=== PATIENT | female | born 1985 | race Caucasian/White ===

== ENCOUNTER 2016-06-21 10:15 | Inpatient (IN) | payer BC, MEDICAID ==
[~2016-06-21] VITALS: Ht 170.2 cm; Wt 70.0 kg
[~2016-06-21 10:15] MED LIST: FERR-22 PO; PREN1TAB53 PO
[2016-06-21 10:34] VITALS: BP 119/72; PULSE 79; RESP 16; TEMP 98.5; O2SAT 98
[2016-06-21] MEDS ORDERED: MAG-AL + SIM LIQUID 30 ML UDC PO PRN (10:45)
[2016-06-21] MEDS ORDERED: LIDOCAINE 1% (10mg/ml) 2ml SDV ID PRN (10:45)
[2016-06-21] MEDS ORDERED: ACETAMINOPHEN 500 MG TABLET PO PRN (10:45)
[2016-06-21] MEDS ORDERED: OXYTOCIN 30 UNIT in D5LR 500 ML SCH (10:45)
[2016-06-21] MEDS ORDERED: CALCIUM CARBONATE 500mg Chewable TAB PO PRN (10:45)
[2016-06-21] MEDS ORDERED: D5LR 1,000 ML IV PRN (11:00)
--- NOTE | 2016-06-21 11:00 | NUR ---
Admission Patient presents with c/o leaking vaginal fluid starting at 0400 today. Baby active, no bleeding or active contraction pattern. Amnisure positive. Admitted as inpatient. Orders obtained for pitocin induction
[2016-06-21 11:11] LABS: HCT - HEMATOCRIT 37.2 % (36-46); HGB - HEMOGLOBIN 12.3 GM/DL (12-16); MEAN CORPUSCULAR HGB 29.4 UUG (26-34); MEAN CORPUSCULAR HGB CONC(MCHC 33.1 GM/DL (31-37); MEAN PLATELET VOLUME 10.8 UM3 (9.4-12.4); RED BLOOD COUNT 4.18 M/MM3 (4.00-5.20); WBC - WHITE BLOOD COUNT 9.5 T/MM3 (4.5-11.0)
[2016-06-21] MEDS: LR 1,000 ML IV PRN ×3 (11:19→15:35)
--- NOTE | 2016-06-21 13:09 | ANESOB ---
Epidural/ Date/Time DATE: 06/21/16 TIME: 13:05 Preop Diagnosis Procedure: Labor Epidural Plan: Epidural Height: 5 ' 7.00 " Weight: 70.000 kg BMI: kg/m2 Temperature: 98.5 Blood Pressure: 119/72 Heart Rate: 79 Respiratory Rate: 16 SaO2: 98 P:2 Medications & Allergies Inpatient Medications Current Medications Medications (Trade) Dose Ordered Sig/Khalida Start Time Stop Time Status Last Admin Dose Admin Lidocaine HCl 0.2 mg 0.2 mg PRN PRN 06/21/16 10:45 Lactated Ringer's (Lactated Ringers) 1,000 ml @ 0 mls/hr Q0M PRN 06/21/16 10:43 06/21/16 11:19 0 MLS/HR Acetaminophen (Tylenol Extra Strength) 1-2 TABS = 500-1,000 MG Q4H PRN 06/21/16 10:45 Al Hydroxide/Mg Hydroxide (Maalox) 30 ml Q4H PRN 06/21/16 10:45 Calcium Carbonate 1-2 TABS Q2H PRN 06/21/16 10:45 Dextrose/Lactated Ringer's 1,000 ml @ 0 mls/hr Q0M PRN 06/21/16 11:00 06/21/16 11:20 0 MLS/HR Oxytocin/Dextrose/ Lactated Ringer's (Pitocin/D5lr) 503 ml @ 0 mls/hr Q0M 06/21/16 10:45 06/21/16 11:20 0 MLS/HR Ferrous Sulfate (Ferrous Sulfate) 325 ( Tablet, 325 ( PO, (Reported) Last Taken: on 06/20/161999 Vits W-Ca,Fe,Fa(<1MG) () 1 Tab Tablet, 1 TAB PO, (Reported) Last Taken: on 06/20/161999 Coded Allergies: Penicillins (Verified Allergy, Unknown, 06/21/16) Medical/Surgical History Anesthesia PMH: Reports: , Denies: *Diabetes, Anesthesia Reactions, Malignant Hyperthermia Smoking Status: Never smoker Does patient use chewing tobac: No Second Hand Exposure: No Alcohol Intake: none Anesthesia Adverse Reactions: FOUND none Family Hx of Anesthesia Advers: none Hx of Motion Sickness: No Complications During : No Pertinent Findings Laboratory Tests 4/28/17 11:03 EKG Rhythm: Sinus Rhythm Physical Exam Respiratory: Lungs clear Cardiovascular: Regular rate, rhythm Airway Assessment Mallampati Score: II TMD: 3 Fingerbreadths Neck Extension: Good Overall Assessment: May Be Diff Intubation ASA: 2 Discussion Discussed risks/options/alternatives of anesthesia. Patient consents. Nursing pain assessment noted. Present for Discussion: Present: Spouse Attestation Statement Prior to the delivery of any anesthetic medication, I examined the patient, developed the plan, obtained the patient's consent and discussed the risk and benefits of the procedure with the patient/guardian. If the note happens to be signed after anesthesia start time, it is only due to providing efficient care of the patient and documenting at a time when the computer is available. MAX STERN CRNA Jun 21, 2016 13:09
[2016-06-21] MEDS ORDERED: MILK OF MAGNESIA 30 ML SUSP PO PRN (18:00)
[2016-06-21] MEDS ORDERED: PHENYLEPHRINE RECTAL SUPPOSITORY RECTALLY PRN (18:00)
[2016-06-21] MEDS ORDERED: DiphenhydrAMINE 25 MG CAPSULE PO PRN (18:00)
[2016-06-21] MEDS ORDERED: OXYTOCIN 30 UNIT in D5W 500 ML IV ONE (18:00)
[2016-06-21] MEDS ORDERED: HYDROCORTISONE 2.5% CREAM 30 GM RECTALLY PRN (18:00)
--- NOTE | 2016-06-21 19:29 | ANESPO ---
Post-Op Note Date 06/21/16 Time: 19:28 Status Pt Participated in Evaluation: Pt participated in person Vital Signs Date Time Temp Pulse Resp B/P Pulse Ox O2 Delivery O2 Flow Rate FiO2 06/21/16 10:34 98.5 79 16 119/72 98 Respiratory Function: Airway patent Cardiovascular Function: Regular pulse Mental Status: Alert/oriented Pain Level Intensity: 0 Hydration: Taking po fluids Complications during Recovery None apparent Follow-Up Instructions Instructions Per Surgeon Additional Information no complications MEJIA GOLDSMITH CRNA Jun 21, 2016 19:29
[2016-06-21 22:00] VITALS: BP 118/76; PULSE 64; RESP 16; TEMP 98.1; O2SAT 98
--- NOTE | 2016-06-21 22:00 | NUR ---
Epidural Epidural catheter removed without complications, tip intact, no S/S of infection noted. Area cleansed with alcohol, betadine and covered with a bandaid. Pt. educated about S/S of infection and to call doctor with concerns.
[2016-06-21] MEDS: IBUPROFEN 800 MG TABLET PO PRN (23:25)
--- NOTE | 2016-06-22 01:38 | NUR ---
Chart Check 24 hour chart check completed
--- NOTE | 2016-06-22 01:39 | NUR ---
Shift summary: Pt. delivered viable female infant on 06/21 at 1743 via vaginal delivery. VSS. Fundus is firm and midline with small bleeding. Pt. is up ad nhan. Pericare performed at 2200 and jarquin catheter DC'd. Pt. has not yet voided since removal of jarquin catheter. Epidural catheter DC'd, tip intact. Pt. is IV saline locked. Tolerating regular diet and fluids. Pain controlled with Ibuprofen 800 mg. is supportive and at bedside. Attentive to infant needs.
[2016-06-22] MEDS: HYDROCODONE/APAP 5 mg/325 mg TABLET PO PRN ×2 (06:29→14:52)
[2016-06-22 06:30] VITALS: BP 122/70; PULSE 56; RESP 16; TEMP 98.4; O2SAT 98
[2016-06-22] MEDS ORDERED: DOCUSATE CALCIUM 240 MG CAPSULE PO SCH (09:00)
[2016-06-22] MEDS: IBUPROFEN 800 MG TABLET PO PRN (09:16)
--- NOTE | 2016-06-22 09:32 | PNPDOC ---
Progress Note PPD1 Rubella: Immune GBS: Negative Blood Type:O pos Subjective 06/22/16 Lochia: Minimal Pain: Controlled Voiding: Voiding Objective Vital Signs Date Time Temp Pulse Resp B/P Pulse Ox O2 Delivery O2 Flow Rate FiO2 06/22/16 06:30 98.4 56 16 122/70 98 Room Air General: Alert and Oriented Abdomen: Fundus Firm, Non-tender Extremities: Non-tender Assessment (1) (spontaneous vaginal delivery) Plan: Routine Care, Discharge Home, Continue PNV TRAVIS WALLACE MD Jun 22, 2016 09:32
[2016-06-22] MEDS ORDERED: IBUP-1547 PO (09:34)
[2016-06-22] MEDS ORDERED: HYDR-4246 PO (09:34)
[2016-06-22 14:46] VITALS: BP 112/59; PULSE 75; RESP 14; TEMP 97.6; O2SAT 98
--- NOTE | 2016-06-22 15:35 | LDNF ---
DATE OF DELIVERY 06/21/16 Kelsie is a 30-year-old 3, para 2 at 38 weeks 6 days gestational age who presented to maternal child with spontaneous rupture of membranes. She was not michael so she was started on Pitocin. She received an epidural. She progressed nicely throughout labor. She only had to push for one contraction and had a spontaneous vaginal delivery of a viable female , Apgars 8/9, weight 3200 grams, name "Beatriz." The baby was vigorous at delivery so she was placed on mom's abdomen and the cord clamping was delayed for more than two minutes. The placenta was manually extracted because part of it did not want to release easily. The manual exam of the uterus was done and no retained placenta was found. She had a small periurethral laceration and a right with labial laceration that were not bleeding, so they were not repaired. Mom and baby tolerated the delivery well. ODALYS
[2016-06-22 16:49] VITALS: BP 115/62; PULSE 68; RESP 16; TEMP 97.8; O2SAT 98
--- NOTE | 2016-06-22 20:09 | NUR ---
Dismissal Pt discharged in stable condition. Rx filled out at [facility] pharmacy by . Maternal and dismissal instructions gone over. Patient verbalizes understanding. Pt reports she has a pump at home that she will start using. Period of purple crying hand out given to pt. to first year book given as well.
== END 2016-06-22 20:09 | disposition home or self-care (01) | DRG 767 ==
LOC: OBOBS 10:15 → MC 10:15 → OBOBS 10:39 → EDSTATUS 06-29 10:20
PROVIDERS: ADMIT Obstetrics & Gynecology; ATTEND Obstetrics & Gynecology
PROC: 10E0XZZ Delivery of Products of Conception, External Approach (ICD-10-PCS; principal; 2016-06-21)
PROC: 10D17ZZ Extraction of Products of Conception, Retained, Via Natural or Artificial Opening (ICD-10-PCS; 2016-06-21)
PROC: 3E033VJ Introduction of Other Hormone into Peripheral Vein, Percutaneous Approach (ICD-10-PCS; 2016-06-21)
DX: O42.02 Full-term premature rupture of membranes, onset of labor within 24 hours of rupture (principal); O72.0 Third-stage hemorrhage; O32.8XX0 Maternal care for other malpresentation of fetus, not applicable or unspecified; O71.82 Other specified trauma to perineum and vulva; O70.0 First degree perineal laceration during delivery; O09.33 Supervision of pregnancy with insufficient antenatal care, third trimester; Z3A.38 38 weeks gestation of pregnancy; Z37.0 Single live birth
CPT/HCPCS: 84112; 85027